=== PATIENT | female | born 1990 | race African-American/Black ===

== ENCOUNTER 2020-09-15 13:55 | Emergency (ER) | payer MEDICAID, SELFPAY ==
[2020-09-15 14:14] VITALS: BP 118/57; PULSE 95; RESP 17; TEMP 36; O2SAT 95; BMI 28.3
--- NOTE | 2020-09-15 15:23 | ED_ITS ---
HPI - General Adult General Chief complaint: General Medical Stated complaint: sore throat Time Seen by Provider: 09/15/20 14:37 Source: patient Mode of arrival: ambulatory Limitations: no limitations History of Present Illness HPI narrative: Patient presents to the ED for sore throat and pain in both ears. Patient states daughter also having symptoms. She denies any chest pain or shortness of breath. Patient also denies any coughing. Related Data Previous Rx's Medication Instructions Recorded azithromycin [Zithromax Z-Miguel] See Rx Instructions .ROUTE 09/15/20 .COMPLEX #6 tab Allergies Allergy/AdvReac Type Severity Reaction Status Date / Time latex [LATEX] Allergy Intermediate HIVES Unverified 06/08/20 19:38 Penicillins [PENICILLINS] Allergy Mild UNKNOWN Unverified 06/08/20 19:38 Review of Systems Review of Systems: Yes all other systems are reviewed and are negative Constitutional: Constitutional: Reports as per HPI and Reports no additional constitutional complaints Eyes: Eyes: Reports as per HPI and Reports no additional eye complaints ENT: Reports system reviewed and no additional complaints, except as documented, Reports as per HPI and Reports sore throat Cardiovascular: Cardiovascular: Reports as per HPI and Reports no additional cardiovascular complaints Respiratory: Respiratory: Reports as per HPI and Reports no additional respiratory complaints Gastrointestinal: Gastrointestinal: Reports as per HPI and Reports no additional gastrointestinal complaints Genitourinary: Genitourinary: Reports no additional female genitourinary complaints and Reports as per HPI Musculoskeletal: Musculoskeletal: Reports no additional musculoskeletal complaints and Reports as per HPI Neurologic: Reports system reviewed and no additional complaints, except as documented and Reports as per HPI Psychiatric: Psychiatric: Reports no additional psychiatric complaints and Reports as per HPI [facility] Social History Social History Smoking Status: Current every day smoker Use of substances other than those prescribed or required for medical reasons: No Advance Directives: No Advance Directives Information Provided: Yes Physical Exam Vital Signs: Vital Signs: Last Vital Signs Temp 96.8 F 09/15/20 14:14 Pulse 95 09/15/20 14:14 Resp 17 09/15/20 14:14 BP 118/57 L 09/15/20 14:14 Pulse Ox 95 09/15/20 14:14 Body Mass Index 28.3 Const: General: cooperative, healthy appearing, comfortable, no acute distress, well developed, alert, awake and Physically active Kenneth entation/consciousness: patient oriented x3 HENMT: Other: Negative for signs for peritonsillar abscess. Head: Yes normal to inspection, Yes No palpable skull fracture present, Yes normocephalic, Yes atraumatic, Yes abrasion, Yes Acrocyanosis present, No Valdez's sign, No contusion, No cranial bruits, No hematoma, No laceration, No occipital foramen tenderness, No palpable skull fracture, No raccoon eyes, No scalp tenderness and No Temporal artery tenderness present Ears: hearing grossly normal bilaterally, external ears normal and TM's normal bilaterally General nose exam: Normal external nose present and Normal nares present Face and sinus: Yes normal facial exam and Yes sinuses nontender Teeth and gingiva: dentition normal and gingiva normal Throat: Yes posterior oropharynx normal, Yes tonsils normal and Yes uvula midline Eyes: General: appearance normal, both eyes and all related structures Neck: Neck: Yes normal visual inspection, Yes full ROM, Yes no lymphadenopathy, Yes no meningeal signs, Yes trachea midline, Yes supple and No tender Chest: Chest palpation & inspection: normal inspection of the chest and normal palpation of entire chest wall Resp: Effort & Inspection: normal respiratory effort and able to speak in complete sentences Auscultation: clear to auscultation bilaterally Cardio: Jugular venous distension: no JVD Heart sounds: S1 normal heart sound present and S2 normal heart sound present GI: Inspection: Yes normal to inspection and No abdominal wall ecchymosis Palpation (GI): Soft to palpation, not firm, nontender, no guarding and not rigid : General: No CVA tenderness and Yes no CVA tenderness Back/Spine/Pelvis: Back: no CVA tenderness, No CVA tenderness and No back tenderness Skin: General skin exam: no rashes or lesions noted Neuro: General: patient oriented x3, gait normal, no meningeal signs and CN's II-XI intact bilaterally Cranial nerves: Yes CN's II-XII intact bilaterally Extrem: General: Yes normal to inspection and Yes full ROM Psych: Appearance: grossly normal, well kempt and not disheveled Course Course Course Narrative: Patient will have COVID swab and rapid strep done. Patient is not toxic appearing. Reevaluation(s) Reevaluation #1: Patient positive for rapid strep. Patient was discharged with azithromycin due to allergy to pencillin. Time: 15:55 Medical Decision Making [facility] Narrative Medical decision making narrative: Strep tonsillitis Lab Data Labs: Lab Results 09/15/20 Range/Units 14:52 Coronavirus (PCR) NEGATIVE (Negative) Influenza Type A (PCR) NEGATIVE (Negative) Influenza Type B (PCR) NEGATIVE (Negative) RSV RNA Qual (PCR) NEGATIVE (Negative) Discharge Plan Discharge Clinical Impression: Strep tonsillitis Patient Disposition: Home, Self-Care Instructions: Tonsillitis (ED) Additional Instructions: Return to the ED immediately for worsening throat pain, drooling, change in voice, chest pain, shortness of breath, neck swelling, or any other concerning symptoms. Prescriptions: New azithromycin [Zithromax Z-Miguel] 250 mg tablet See Rx Instructions .ROUTE .COMPLEX Qty: 6 RF: 0 Referrals: Elizabeth Cleveland NP [Primary Care Provider] - 2 days (Strep tonsillitis. Negative COVID. negative influenza. Negative RSV) Interventions: ED Discharge Assessment Last Done: 09/15/20 16:29 Discharge Date/Time: 09/15/20 16:30 Print Language: Mauritanian
[2020-09-15 15:41] LABS: Influenza A PCR NEGATIVE (Negative); Influenza B PCR NEGATIVE (Negative); Resp Syncy Virus RNA Qual PCR NEGATIVE (Negative); SARS COV2 PCR INHOUSE NEGATIVE (Negative)
== END 2020-09-15 16:30 | disposition home or self-care (01) ==
PROVIDERS: Physician Assistant; Emergency Provider Emergency Medicine Emergency Medical Services; PCP Nurse Practitioner Family
DX: J03.00 Acute streptococcal tonsillitis, unspecified (principal); H92.03 Otalgia, bilateral; Z20.828 Contact with and (suspected) exposure to other viral communicable diseases; Z79.899 Other long term (current) drug therapy; F17.200 Nicotine dependence, unspecified, uncomplicated; Z71.6 Tobacco abuse counseling
CPT/HCPCS: 0241U; 87880; 99283

== ENCOUNTER 2021-01-04 12:16 | Emergency (ER) | payer MEDICAID, SELFPAY ==
[2021-01-04 12:26] VITALS: BP 133/77; PULSE 80; RESP 18; TEMP 36.8; O2SAT 97; BMI 27.4
[2021-01-04 13:04] LABS: Appearance Urine HAZY; Color Urine YELLOW; Glucose Urine UA NEG (NEG); Leukocyte Esterase Urine 1+ (NEG); Nitrite Urine NEG (NEG); UACC Culture Trigger YES; Urine Blood 2+ (NEG); Urine Ketones NEG (NEG); Urine Protein 1+ MG/DL (NEG-TRACE)
[2021-01-04 13:18] LABS: Bacteria Urine 1+ /LPF; Squamous Epithelial Cell Urine 1+ /LPF; WBC Urine 30-49 /HPF (0-4)
[2021-01-04 13:36] VITALS: BP 133/77; PULSE 80; RESP 18; TEMP 36.8; O2SAT 97
[2021-01-04 13:40] LABS: UPreg QC Valid YES; Urine Pregnancy NEGATIVE (NEGATIVE)
[2021-01-04 14:00] VITALS: BP 115/70; PULSE 58; RESP 16
[2021-01-04] MEDS: Ketorolac Tromethamine 30 MG/ML VIAL IVPUSH (14:13)
[2021-01-04] MEDS: 0.9 % Sodium Chloride 1,000 ML 999 ML IV (14:14)
[2021-01-04 14:23] LABS: MANUAL DIFF FLAG NO
[2021-01-04 14:27] LABS: Basophils Absolute Auto 0.1 X10*3/uL (0.0-0.2); Basophils Percent Auto 0.4 % (0-2); Eosinophils Absolute Auto 0.4 X10*3/uL (0.0-0.4); Eosinophils Percent Auto 2.8 % (0-4); Hematocrit 38.6 % (37-47); Hemoglobin 12.4 g/dl (12.0-16.0); Imm Gran Abs Auto 0.04 X10*3/uL (0.00-0.03); Imm Gran Pct Auto 0.3 % (0.0-0.4); Lymphocytes Absolute Auto 2.3 X10*3/uL (1.2-4.9); Lymphocytes Percent Auto 17.5 % (20-40); Mean Corpuscular HGB Conc 32.1 g/dl (31.0-35.0); Mean Corpuscular Hemoglobin 27.7 pg (27.0-33.0); Mean Corpuscular Volume 86.2 fL (80-98); Mean Platelet Volume 10.1 fL (9.4-12.3); Monocytes Absolute Auto 0.9 X10*3/uL (0.1-1.2); Monocytes Percent Auto 6.9 % (2-11); Neutrophils Absolute Auto 9.4 X10*3/uL (2.0-8.3); Neutrophils Percent Auto 72.1 % (45-73); Platelet Count 349 X10*3/uL (160-400); Red Blood Count 4.48 X10*6/uL (4.20-5.50); Red Cell Distribution Width 15.3 % (11.0-16.0); White Blood Count 13.1 X10*3/uL (4.8-10.8)
[2021-01-04 14:37] LABS: UPreg QC Valid YES; Urine Pregnancy NEGATIVE (NEGATIVE)
[2021-01-04 14:57] LABS: Alanine Aminotransferase 10 U/L (0-31); Albumin Level 4.1 g/dL (3.5-5.0); Alkaline Phosphatase 75 U/L (39-117); Anion Gap 12 (12-20); Aspartate Amino Transferase 13 U/L (5-31); Bilirubin Total 0.8 mg/dL (0.0-1.0); Blood Urea Nitrogen 15 mg/dL (9-16); Calcium 9.5 mg/dL (8.4-10.2); Carbon Dioxide 24 mmol/L (22-29); Chloride 106 mmol/L (96-108); Creatinine Clr Calc Pharmacy 94.9; Estimated Glomerular Filt Rate > 60; Glucose Random 89 mg/dL (60-115); Lipase 8 U/L (8-78); Potassium 4.5 mmol/L (3.3-5.1); Sodium 137 mmol/L (135-145)
[2021-01-04 15:59] VITALS: BP 116/62; PULSE 66; RESP 18; TEMP 36.7; O2SAT 99
--- NOTE | 2021-01-04 16:04 | ED_ITS ---
HPI - General Adult General Chief complaint: Abdominal Pain Stated complaint: flank pain Time Seen by Provider: 01/04/21 13:11 Source: patient Mode of arrival: ambulatory Limitations: no limitations History of Present Illness HPI narrative: 30-year-old female who presents emergency department for evaluation of frequency, dysuria and right-sided flank pain. She states that her symptoms started Friday, 4 days prior to evaluation. She states that she developed frequency and dysuria. She also felt hot at home but did not take her temperature. She took [id number] medications without any relief for symptoms. She states that 2 days prior to evaluation she developed right flank pain which is constant, throbbing and is 10/10. She has had associated headache body aches and weakness. She states that she has had 2 urinary tract infections in the past and her symptoms feel similar to her urinary tract infections. Patient states that she is sexually active and has 1 sexual partner. She last had intercourse 6 days prior to evaluation. She is currently on her menstrual period. She states that she has had a bilateral tubal ligation 8 months prior and does not believe that she is . Related Data Previous Rx's Medication Instructions Recorded azithromycin [Zithromax Z-Miguel] See Rx Instructions .ROUTE 09/15/20 .COMPLEX #6 tab cefuroxime axetil 500 mg PO Q12H 10 Days #20 tab 01/04/21 phenazopyridine [Pyridium] 200 mg PO TID #10 tab 01/04/21 Allergies Allergy/AdvReac Type Severity Reaction Status Date / Time latex [LATEX] Allergy Intermediate HIVES Unverified 01/04/21 12:25 Penicillins [PENICILLINS] Allergy Mild UNKNOWN Unverified 01/04/21 12:25 Review of Systems Review of Systems: Yes all other systems are reviewed and are negative [facility] Past Medical History [facility] Narrative: Patient has a history of urinary tract infections in the past, she had pelvic DVT when she was . She has had 2 urinary tract infections in the past. She occasionally drinks alcohol, she occasionally s mokes marijuana. She denies tobacco use. Social History Social History Smoking Status: Current every day smoker Advance Directives: No Advance Directives Information Provided: Yes Physical Exam Vital Signs: Vital Signs: Last Vital Signs Temp 98.1 F 01/04/21 15:59 Pulse 66 01/04/21 15:59 Resp 18 01/04/21 15:59 BP 116/62 01/04/21 15:59 Pulse Ox 99 01/04/21 15:59 Body Mass Index 27.4 Const: General: cooperative and healthy appearing Orienta tion/consciousness: oriented to person and oriented to place Limitations: no limitations HENMT: Head: Yes normal to inspection, Yes normocephalic and Yes atraumatic Ears: external ears normal General nose exam: Normal external nose present Face and sinus: Yes normal facial exam Mouth: Normal oral and palatal mucosa present Throat: Yes posterior oropharynx normal Eyes: Periorbital: periorbital findings normal Eyelids: Yes eyelids normal Conjunctivae: conjunctivae normal Sclerae: sclerae normal Corneas: corneas normal Pupils: Equal, round and reactive pupils present Direct Ophthalmoscopy: normal light reflex Neck: Neck: Yes full ROM, Yes no lymphadenopathy, Yes no meningeal signs, Yes trachea midline and Yes supple Chest: Chest palpation & inspection: normal inspection of the chest and normal palpation of entire chest wall Resp: Effort & Inspection: normal respiratory effort and able to speak in complete sentences Auscultation: clear to auscultation bilaterally Cardio: Rate: regular rate Rhythm: regular rhythm Heart sounds: S1 normal heart sound present, S2 normal heart sound present and no murmurs GI: Inspection: Yes normal to inspection Palpation (GI): Soft to palpation, Tenderness to palpation present (GI) suprapubicly (Moderate), no guarding, not rigid and No hepatosplenomegaly present : General: Yes CVA tenderness on the right (Moderate) Back/Spine/Pelvis: Back: CVA tenderness Cervical Spine: normal cervical lordosis Thoracic/Lumbar Spine: thoracic and lumbar spine normal to inspection Skin: Lesions: no lesions Rashes: no rashes Wounds: no wounds Neuro: General: oriented to person, oriented to place and no meningeal signs Cranial nerves: Yes CN's II-XII intact bilaterally and Yes Equal, round and reactive pupils present Cognition (Neuro): normal cognition Motor exam (neuro): 5/5 motor strength present throughout Extrem: General: Yes normal to inspection and Yes full ROM Psych: Appearance: well kempt Mental Status: mental status grossly normal Speech and movement: Normal speech and movement present Affect: normal affect Attitude: cooperative Thought process: Normal thought process present Thought content: Normal thought content present Course Course Course Narrative: 30-year-old female who presents emergency department for evaluation of right flank pain, frequency, urgency dysuria. Physical examination did reveal right-sided CVA tenderness and suprapubic tenderness. Laboratory evaluation revealed a [place] [address]. Patient's urinalysis and microscopic evaluation is consistent with a urinary tract infection. Patient's presentation is consistent with right-sided pyelonephritis. Patient was treated with Toradol 30 mg IV, normal saline IV x1 L and ceftriaxone 1 g IV. The patient will be discharged home with a p rescription for Keflex 500 mg 4 times a day for 7 days. She was given verbal and printed instructions advised to follow-up with her PCP and return if her symptoms get worse. Medical Decision Making Lab Data Result diagrams: 01/04/21 14:12 01/04/21 14:12 Labs: Lab Results 01/04/21 01/04/21 01/04/21 Range/Units 12:43 12:43 13:57 WBC (4.8-10.8) X10*3/uL RBC (4.20-5.50) X10*6/uL Hgb (12.0-16.0) g/dl Hct (37-47) % MCV (80-98) fL MCH (27.0-33.0) pg MCHC (31.0-35.0) g/dl RDW (11.0-16.0) % Plt Count (160-400) X10*3/uL MPV (9.4-12.3) fL Immature Gran % (Auto) (0.0-0.4) % Neut % (Auto) (45-73) % Lymph % (Auto) (20-40) % [place] % (Auto) (2-11) % Eos % (Auto) (0-4) % Baso % (Auto) (0-2) % Lymph # (Auto) (1.2-4.9) X10*3/uL [place] # (Auto) (0.1-1.2) X10*3/uL Eos # (Auto) (0.0-0.4) X10*3/uL Baso # (Auto) (0.0-0.2) X10*3/uL Abs Immat Gran (auto) (0.00-0.03) X10*3/uL Absolute Neuts (auto) (2.0-8.3) X10*3/uL Absolute Nucleated RBC (0.0-0.012) X10*3/uL Nucleated RBC % (auto) (0.0-0.2) /100WBC Sodium (135-145) mmol/L Potassium (3.3-5.1) mmol/L Chloride (96-108) mmol/L Carbon Dioxide (22-29) mmol/L Anion Gap (12-20) BUN (9-16) mg/dL Creatinine (0.5-1.4) mg/dL Estim Creat Clear Calc Estimated GFR Random Glucose (60-115) mg/dL Calcium (8.4-10.2) mg/dL Total Bilirubin (0.0-1.0) mg/dL AST (5-31) U/L ALT (0-31) U/L Alkaline Phosphatase (39-117) U/L Total Protein (6.5-8.0) g/dL Albumin (3.5-5.0) g/dL Lipase (8-78) U/L Urine Color YELLOW Urine Appearance HAZY Urine pH 6.0 (5.0-8.0) Ur Specific [place] 1.020 (1.005-1.025) Urine Protein 1+ H (NEG-TRACE) MG/DL Urine Glucose (UA) NEG (NEG) MG/DL Urine Ketones NEG (NEG) MG/DL Urine Blood 2+ H (NEG) Urine Nitrite NEG (NEG) Ur Leukocyte Esterase 1+ H (NEG) Urine RBC 10-14 H (0) /HPF Urine WBC 30-49 H (0-4) /HPF Ur Squamous Epith Cells 1+ /LPF Urine Bacteria 1+ /LPF Urine Test NEGATIVE NEGATIVE (NEGATIVE) 01/04/21 01/04/21 Range/Units 14:12 14:12 WBC 13.1 H (4.8-10.8) X10*3/uL RBC 4.48 (4.20-5.50) X10*6/uL Hgb 12.4 (12.0-16.0) g/dl Hct 38.6 (37-47) % MCV 86.2 (80-98) fL MCH 27.7 (27.0-33.0) pg MCHC 32.1 (31.0-35.0) g/dl RDW 15.3 (11.0-16.0) % Plt Count 349 (160-400) X10*3/uL MPV 10.1 (9.4-12.3) fL Immature Gran % (Auto) 0.3 (0.0-0.4) % Neut % (Auto) 72.1 (45-73) % Lymph % (Auto) 17.5 L (20-40) % [place] % (Auto) 6.9 (2-11) % Eos % (Auto) 2.8 (0-4) % Baso % (Auto) 0.4 (0-2) % Lymph # (Auto) 2.3 (1.2-4.9) X10*3/uL [place] # (Auto) 0.9 (0.1-1.2) X10*3/uL Eos # (Auto) 0.4 (0.0-0.4) X10*3/uL Baso # (Auto) 0.1 (0.0-0.2) X10*3/uL Abs Immat Gran (auto) 0.04 H (0.00-0.03) X10*3/uL Absolute Neuts (auto) 9.4 H (2.0-8.3) X10*3/uL Absolute Nucleated RBC 0.000 (0.0-0.012) X10*3/uL Nucleated RBC % (auto) 0.0 (0.0-0.2) /100WBC Sodium 137 (135-145) mmol/L Potassium 4.5 (3.3-5.1) mmol/L Chloride 106 (96-108) mmol/L Carbon Dioxide 24 (22-29) mmol/L Anion Gap 12 (12-20) BUN 15 (9-16) mg/dL Creatinine 0.79 (0.5-1.4) mg/dL Estim Creat Clear Calc 94.9 Estimated GFR > 60 Random Glucose 89 (60-115) mg/dL Calcium 9.5 (8.4-10.2) mg/dL Total Bilirubin 0.8 (0.0-1.0) mg/dL AST 13 (5-31) U/L ALT 10 (0-31) U/L Alkaline Phosphatase 75 (39-117) U/L Total Protein 7.0 (6.5-8.0) g/dL Albumin 4.1 (3.5-5.0) g/dL Lipase 8 (8-78) U/L Urine Color Urine Appearance Urine pH (5.0-8.0) Ur Specific [place] (1.005-1.025) Urine Protein (NEG-TRACE) MG/DL Urine Glucose (UA) (NEG) MG/DL Urine Ketones (NEG) MG/DL Urine Blood (NEG) Urine Nitrite (NEG) Ur Leukocyte Esterase (NEG) Urine RBC (0) /HPF Urine WBC (0-4) /HPF Ur Squamous Epith Cells /LPF Urine Bacteria /LPF Urine Test (NEGATIVE) Discharge Plan Discharge Clinical Impression: Pyelonephritis of right kidney Patient Disposition: Home, Self-Care Instructions: Urinary Tract Infection in Women (ED) Additional Instructions: Your physical examination is consistent with a right kidney infection (pyelonephritis). Your laboratory evaluation did reveal a slight elevation in white blood cell count and your urinalysis is consistent with a urinary tract infection. You were treated here in the emergency department with an anti-inflammatory pain medicine call Toradol IV. You also received normal saline x1 L IV. You were given an antibiotic called ceftriaxone 1 g IV. Take Keflex (cephalexin) 500 mg pills, 1 pill 4 times a day for 7 days to treat your urine infection. Take Pyridium 200 mg pills, 1 pill 3 times a day as needed for painful urination. Take ibuprofen 200 mg pills, 3 pills every 6 hours as needed for pain. Take Tylenol (acetaminophen) 500 mg pills, 2 pills every 4 to 6 hours as needed for pain. Follow-up with your doctor in 2 days. Please return to the emergency department if your symptoms get worse or if you develop any symptoms that are concerning to you. If your concerned about sexually transmitted diseases like gonorrhea and chlamydia your doctor can order an outpatient urine sample to test for these infections. Prescriptions: New cefuroxime axetil 500 mg tablet 500 mg PO Q12H 10 Days Qty: 20 RF: 0 phenazopyridine [Pyridium] 200 mg tablet 200 mg PO TID Qty: 10 RF: 0 No Action azithromycin [Zithromax Z-Miguel] 250 mg tablet See Rx Instructions .ROUTE .COMPLEX Qty: 6 RF: 0
== END 2021-01-04 16:32 | disposition home or self-care (01) ==
PROVIDERS: Emergency Provider Emergency Medicine Emergency Medical Services; PCP Nurse Practitioner Family
DX: N10 Acute pyelonephritis (principal); R35.0 Frequency of micturition; R10.9 Unspecified abdominal pain; R51.9 Headache, unspecified; M79.10 Myalgia, unspecified site; F17.200 Nicotine dependence, unspecified, uncomplicated; Z71.6 Tobacco abuse counseling; Z79.899 Other long term (current) drug therapy
CPT/HCPCS: 36415; 80053; 81001; 81003; 81025; 83690; 85025; 87086; 87088; 87186; 96365; 96375; 99285; J1885

== ENCOUNTER 2021-03-24 14:28 | Emergency (ER) | payer MEDICAID, SELFPAY ==
[2021-03-24 14:43] VITALS: BP 119/65; PULSE 79; RESP 18; TEMP 36.7; O2SAT 99; BMI 25.3
[2021-03-24 15:20] LABS: Glucose Urine UA NEG (NEG); Leukocyte Esterase Urine 1+ (NEG); Nitrite Urine NEG (NEG); Specific Gravity - Urine >= 1.030 (1.005-1.025); UACC Culture Trigger YES; Urine Blood NEG (NEG); Urine Ketones NEG (NEG); Urine Protein TRACE MG/DL (NEG-TRACE)
[2021-03-24 15:23] LABS: Appearance Urine HAZY; Color Urine YELLOW
[2021-03-24 15:24] LABS: UPreg QC Valid YES; Urine Pregnancy NEGATIVE (NEGATIVE)
[2021-03-24 15:29] LABS: Bacteria Urine TRACE /LPF; Mucus Urine TRACE /LPF; RBC Urine 0 /HPF (0); Squamous Epithelial Cell Urine 1+ /LPF; WBC Urine 30-49 /HPF (0-4)
[2021-03-24 15:50] LABS: COVID-19 Test Negative (Negative)
[2021-03-24 16:15] LABS: IDNOW Serial# 9DD0AD1C; Strep A Nucleic Acid Negative (Negative)
--- NOTE | 2021-03-24 16:39 | ED.GENADULT ---
HPI - General Adult General Chief complaint: General Medical Stated complaint: sore throat Time Seen by Provider: 03/24/21 15:07 History of Present Illness HPI narrative: patient with 2 complaints First complaint is a sore throat for several days Second complaint is 2 days of frequent urination similar to prior urinary tract infection with mild suprapubic pain when she urinates Review of symptoms is positive for sore throat and dysuria Negatives are no fever no chills no dizziness no weakness no headache no difficulty breathing or swallowing no neck pain no chest pain no shortness of breath no abdominal pain no nausea vomiting or diarrhea no skin rash Related Data Previous Rx's Medication Instructions Recorded azithromycin [Zithromax Z-Miguel] See Rx Instructions .ROUTE 09/15/20 .COMPLEX #6 tab cefuroxime axetil 500 mg PO Q12H 10 Days #20 tab 01/04/21 phenazopyridine [Pyridium] 200 mg PO TID #10 tab 01/04/21 acetaminophen 1,000 mg PO QID PRN #30 tab 03/24/21 ibuprofen 600 mg PO Q6H PRN #20 tab 03/24/21 nitrofurantoin monohyd/m-cryst 100 mg PO Q12H 5 Days #10 cap 03/24/21 [Macrobid] Allergies Allergy/AdvReac Type Severity Reaction Status Date / Time latex [LATEX] Allergy Intermediate HIVES Verified 03/24/21 14:43 Penicillins [PENICILLINS] Allergy Mild UNKNOWN Verified 03/24/21 14:43 [facility] Past Medical History Source: nursing notes reviewed Surgical History (Updated 03/24/21 @ 14:46 by Akua Arguello RN) S/P tubal ligation Social History Social History Alcohol intake: never Advance Directives: No Advance Directives Information Provided: Yes Patient : No Physical Exam Vital Signs: Vital Signs: Last Vital Signs Temp 98.0 F 03/24/21 14:43 Pulse 79 03/24/21 14:43 Resp 18 03/24/21 14:43 BP 119/65 03/24/21 14:43 Pulse Ox 99 03/24/21 14:43 Body Mass Index 25.3 General appearance no acute distress Eyes are clear no discharge or redness The ears are clear with normal tympanic membranes and normal canals The pharynx had some pharyngeal erythema, no swelling no exudate no drooling no voice change, no exudate Neck was supple without lymphadenopathy Chest was clear to auscultation bilateral Heart no murmur Abdomen soft nontender The back no CVA tenderness Extremities full range of motion x4, no rash Course Course Course Narrative: COVID and strep tests were negative, urinalysis showed a probable urinary tract infection so patient is treated with antibiotic and well-appearing patient is discharged Medical Decision Making Lab Data Labs: Lab Results 03/24/21 03/24/21 03/24/21 Range/Units 15:06 15:11 15:12 Urine Color YELLOW Urine Appearance HAZY Urine pH 6.0 (5.0-8.0) Ur Specific [place] >= 1.030 H (1.005-1.025) Urine Protein TRACE (NEG-TRACE) MG/DL Urine Glucose (UA) NEG (NEG) MG/DL Urine Ketones NEG (NEG) MG/DL Urine Blood NEG (NEG) Urine Nitrite NEG (NEG) Ur Leukocyte Esterase 1+ H (NEG) Urine RBC 0 (0) /HPF Urine WBC 30-49 H (0-4) /HPF Ur Squamous Epith Cells 1+ /LPF Urine Bacteria TRACE /LPF Urine Mucus TRACE /LPF Urine Test NEGATIVE (NEGATIVE) COVID-19 (PAT) Negative (Negative) COVID-19 Clin Com See Note S. pyogenes GrpA BRITNEY (Negative) 03/24/21 Range/Units 15:13 Urine Color Urine Appearance Urine pH (5.0-8.0) Ur Specific [place] (1.005-1.025) Urine Protein (NEG-TRACE) MG/DL Urine Glucose (UA) (NEG) MG/DL Urine Ketones (NEG) MG/DL Urine Blood (NEG) Urine Nitrite (NEG) Ur Leukocyte Esterase (NEG) Urine RBC (0) /HPF Urine WBC (0-4) /HPF Ur Squamous Epith Cells /LPF Urine Bacteria /LPF Urine Mucus /LPF Urine Test (NEGATIVE) COVID-19 (PAT) (Negative) COVID-19 Clin Com S. pyogenes GrpA BRITNEY Negative (Negative) Discharge Plan Discharge Clinical Impression: UTI (urinary tract infection), Pharyngitis Patient Disposition: Home, Self-Care Additional Instructions: urinalysis showed your frequent urination is likely from urine infection so we are treating with Macrobid antibiotic COVID testing was negative as well as strep throat testing was negative Your sore throat is most likely viral Drink plenty of fluids, we gave 1 dose of prednisone which often reduces inflammation in the throat and improve symptoms, you can use Tylenol or Motrin as well for any discomfort Return to the ER any time any worse condition or any concerns If not better next week follow with primary doctor for re-evaluation Prescriptions: New acetaminophen 500 mg tablet 1,000 mg PO QID PRN (Reason: pain) Qty: 30 RF: 0 ibuprofen 600 mg tablet 600 mg PO Q6H PRN (Reason: pain) Qty: 20 RF: 0 nitrofurantoin monohyd/m-cryst [Macrobid] 100 mg capsule 100 mg PO Q12H 5 Days Qty: 10 RF: 0 No Action azithromycin [Zithromax Z-Miguel] 250 mg tablet See Rx Instructions .ROUTE .COMPLEX Qty: 6 RF: 0 cefuroxime axetil 500 mg tablet 500 mg PO Q12H 10 Days Qty: 20 RF: 0 phenazopyridine [Pyridium] 200 mg tablet 200 mg PO TID Qty: 10 RF: 0 Interventions: ED Discharge Assessment Last Done: 03/24/21 17:27 Discharge Date/Time: 03/24/21 17:31
[2021-03-24] MEDS: predniSONE 20 MG TABLET 60 MG PO (17:10)
[2021-03-24] MEDS: Ibuprofen 600 MG TABLET PO (17:10)
[2021-03-24] MEDS: Nitrofurantoin Monohyd/M-Cryst 100 MG CAPSULE PO (17:10)
== END 2021-03-24 17:31 | disposition home or self-care (01) ==
PROVIDERS: Physician Assistant Medical; Emergency Provider Emergency Medicine Emergency Medical Services; PCP Nurse Practitioner Family
DX: J02.9 Acute pharyngitis, unspecified (principal); N39.0 Urinary tract infection, site not specified; Z20.822 Contact with and (suspected) exposure to COVID-19
CPT/HCPCS: 36415; 81001; 81003; 81025; 87086; 87635; 87651; 99283; 99284

== ENCOUNTER 2021-07-19 14:27 | Emergency (ER) | payer MEDICAID, SELFPAY ==
--- NOTE | ~2021-07-19 | XR_ITS ---
EXAMINATION: XR CHEST CLINICAL INFORMATION: Midline chest pain. COMPARISON: Chest radiograph 12/19/2019 TECHNIQUE: Frontal view of the chest was obtained. FINDINGS: The lungs are clear. The vascularity is normal. There is no pneumothorax, airspace consolidation, groundglass opacity, or effusion. The heart is normal in size. The hilar and mediastinal contours are normal. There is borderline levocurvature lower thoracic spine. Bilateral nipple piercings are present. XR/XR chest 1V IMPRESSION: Unremarkable examination.
[2021-07-19 14:31] VITALS: BP 117/71; PULSE 74; RESP 18; TEMP 36.9; O2SAT 100; BMI 24.7
--- NOTE | 2021-07-19 14:35 | ECG_ITS ---
Test Reason : CHEST PAIN Blood Pressure : / mmHG Vent. Rate : 065 BPM Atrial Rate : 065 BPM P-R Int : 164 ms QRS Dur : 076 ms QT Int : 380 ms P-R-T Axes : 048 068 058 degrees QTc Int : 395 ms Normal sinus rhythm with sinus arrhythmia Normal ECG NO PREVIOUS EKG Referred By: Generic ED Physician Electronically Signed By:HUNTER MENESES MD
--- NOTE | 2021-07-19 16:14 | ED.CHESTPAIN ---
HPI - Chest Pain General Chief Complaint: Chest Pain Stated Complaint: chest pain Time Seen by Provider: 07/19/21 15:52 Source: patient Mode of arrival: ambulatory Limitations: no limitations History of Present Illness HPI narrative: 31-year-old female is here today for complaining of stabbing like chest pain. Patient reports that the chest pain was radiating to her back. Patient reports that the pain started about a week ago and is intermittent. Patient reports that she has been going under a lot of stress at home. She is caring for her 3 children, and the youngest one is 3 years old. Two of the children have autism and one of them has ADD. Patient reports that while she was 4 years ago she had blood clot in 1 of her ovaries and she had to inject herself with Lovenox. Patient reports that she also have been feeling short of breath and feeling tired. Denies syncope, presyncope, edema. Patient denies any family history of PE. MD complaint: chest pain and other Onset (ago): day(s) Timing of current episode: episodic and now resolved Related Data Previous Rx's Medication Instructions Recorded azithromycin 250 mg tablet See Rx Instructions .ROUTE 09/15/20 (Zithromax Z-Miguel) .COMPLEX #6 tab cefuroxime axetil 500 mg tablet 500 mg PO Q12H 10 Days #20 tab 01/04/21 phenazopyridine 200 mg tablet 200 mg PO TID #10 tab 01/04/21 (Pyridium) acetaminophen 500 mg tablet 1,000 mg PO QID PRN #30 tab 03/24/21 ibuprofen 600 mg tablet 600 mg PO Q6H PRN #20 tab 03/24/21 nitrofurantoin 100 mg PO Q12H 5 Days #10 cap 03/24/21 monohydrate/macrocrystals 100 mg capsule (Macrobid) cyclobenzaprine 5 mg tablet 5 mg PO BEDTIME PRN #7 tab 07/19/21 ibuprofen 600 mg tablet 600 mg PO Q8H PRN #20 tab 07/19/21 Allergies Allergy/AdvReac Type Severity Reaction Status Date / Time latex [LATEX] Allergy Intermediate HIVES Verified 07/19/21 14:31 Penicillins [PENICILLINS] Allergy Mild UNKNOWN Verified 07/19/21 14:31 Review of Systems Review of Systems: Constitutional : No Weight loss, No Fever, No Chills, No Night Sweats, No Fatigue, No Malaise ENT/Mouth : No Hearing loss, No Ear Pain, No Nasal Congestion, No Sinus Pain, No Hoarseness, No sore throat, No Rhinorrhea, No Swallowing Difficulty Eyes: No Eye Pain, No Swelling, No Redness, No Foreign Body, No Discharge, No Vision Changes Cardiovascular : Chest Pain, No SOB, Dyspnea on Exertion, No Orthopnea, No Edema, No Palpitations Respiratory : No Cough, No Sputum, No Wheezing, No Smoke Exposure, No Dyspnea Gastrointestinal : No Nausea, No Vomiting, No Diarrhea, No Constipation, No abdominal Pain, No Hematochezia, No Melena Genitourinary : no irregular bleeding, No Dysuria, No Urinary Frequency, No Hematuria, No Urinary Incontinence, No Urgency, No Flank Pain, No Urinary Flow Changes, No Hesitancy Musculoskeletal : No joint pain, No Myalgias, No Joint Swelling Skin : No Skin Lesions, No rash Neuro : No Weakness, No Numbness, No Paresthesias, No Loss of Consciousness, No Dizziness, No Headache Psych : No Anxiety/Panic, No Depression, No SI/HI/AH/VH, No Social Issues, Yes all other systems are reviewed and are negative [facility] Past Medical History Medical History (Updated 07/19/21 @ 17:21 by NICOLAS Wright-) Asthma Surgical History S/P tubal ligation Social History Social History Alcohol intake: never Advance Directives: No Advance Directives Information Provided: No Patient : No Physical Exam Vital Signs: Vital Signs: Last Vital Signs Temp 98.4 F 07/19/21 14:31 Pulse 74 07/19/21 14:31 Resp 18 07/19/21 14:31 BP 117/71 07/19/21 14:31 Pulse Ox 100 07/19/21 14:31 Body Mass Index 24.7 Const: General: cooperative, healthy appearing and comfortable Nutritional Appearance: average body habitus Orientation/consciousness: patient oriented x3 Limitations: no limitations HENMT: Head: Yes normal to inspection, Yes normocephalic and Yes atraumatic Ears: hearing grossly normal bilaterally General nose exam: Normal external nose present Face and sinus: Yes normal facial exam Mouth: Normal oral and palatal mucosa present Throat: Yes posterior oropharynx normal Eyes: General: appearance normal, both eyes and all related structures Eyelids: Yes eyelids normal Conjunctivae: conjunctivae normal Sclerae: sclerae normal Pupils: Equal, round and reactive pupils present Neck: Neck: Yes normal visual inspection, Yes full ROM, Yes no lymphadenopathy, Yes trachea midline and Yes supple Thyroid: Thyroid normal Lymphatic: no lymphadenopathy noted Chest: Chest palpation & inspection: normal inspection of the chest Resp: Effort & Inspection: normal respiratory effort and able to speak in complete sentences Auscultation: clear to auscultation bilaterally Cardio: Jugular venous distension: no JVD Rate: regular rate Rhythm: regular rhythm Heart sounds: S1 normal heart sound present, S2 normal heart sound present, no gallops, no murmurs and no rubs Peripheral pulses: Peripheral pulses 2+ throughout GI: Inspection: Yes normal to inspection and No distended Palpation (GI): Soft to palpation, nontender, no guarding, No hepatosplenomegaly present and No Rebound tenderness present Percussion: Yes normal to percussion Auscultation: normal bowel sounds Back/Spine/Pelvis: Cervical Spine: cervical ROM normal and No cervical muscular tenderness Thoracic/Lumbar Spine: thoracic and lumbar spine normal to inspection Skin: General skin exam: no rashes or lesions noted, elasticity normal and turgor normal Neuro: General: patient oriented x3 Cranial nerves: Yes Equal, round and reactive pupils present Extrem: General: Yes normal to inspection, Yes full ROM and Yes capillary refill normal Psych: Appearance: grossly normal Mental Status: mental status grossly normal Speech and movement: Normal speech and movement present Affect: normal affect Attitude: cooperative Thought process: Normal thought process present Insight: Good insight present (Psych) Course Course Course Narrative: 31-year-old female is here today for complaints of chest pain. Patient reports that she has stabbing chest pain radiating to her back and her left armpit area. Patient reports that she has been under lot of stress caring for her 3 small children. Youngest one is 3 years old. Two of the children have autism and one of them have ADD. Patient reports to feel out of breath even when she walk short distances. Reports to be feeling tired. The symptoms have been going on for almost a week. Patient also reports that when she was with her child 3 years ago she had blood clots on her ovary and was receiving Lovenox injections. Patient denies any leg pain, denies any dizziness. Denies any syncope, presyncope. Will order D-dimer, troponin, BMP and CBC if D-dimer positive will do CTA. Patient is agreeable to this plan Reevaluation(s) Reevaluation #1: D-dimer negative, troponin negative, no leukocytosis no anemia, kidney functions normal and normal electrolytes. Will medicate her with cyclobenzaprine and ibuprofen. Patient reports that her pain is more in her left upper back behind her armpit area. I will give her low-dose cyclobenzaprine and ibuprofen. Patient will be sent home on ibuprofen, she can take cyclobenzaprine at bedtime. Patient was encouraged to follow-up with her PCP for further care. She was also encouraged to return if her symptoms will get worse or if she will experience any additional concerning symptoms MDM - Chest Pain Lab Data Attestation: I reviewed the patient's lab results. Result diagrams: 07/19/21 16:38 07/19/21 16:38 Labs: Lab Results 07/19/21 07/19/21 07/19/21 Range/Units 16:38 16:38 16:38 WBC 8.8 (4.8-10.8) X10*3/uL RBC 4.67 (4.20-5.50) X10*6/uL Hgb 12.9 (12.0-16.0) g/dl Hct 40.0 (37-47) % MCV 85.7 (80-98) fL MCH 27.6 (27.0-33.0) pg MCHC 32.3 (31.0-35.0) g/dl RDW 14.6 (11.0-16.0) % Plt Count 375 (160-400) X10*3/uL MPV 9.9 (9.4-12.3) fL Immature Gran % (Auto) 0.3 (0.0-0.4) % Neut % (Auto) 58.8 (45-73) % Lymph % (Auto) 31.3 (20-40) % Motley % (Auto) 6.5 (2-11) % Eos % (Auto) 2.3 (0-4) % Baso % (Auto) 0.8 (0-2) % Lymph # (Auto) 2.8 (1.2-4.9) X10*3/uL Motley # (Auto) 0.6 (0.1-1.2) X10*3/uL Eos # (Auto) 0.2 (0.0-0.4) X10*3/uL Baso # (Auto) 0.1 (0.0-0.2) X10*3/uL Abs Immat Gran (auto) 0.03 (0.00-0.03) X10*3/uL Absolute Neuts (auto) 5.2 (2.0-8.3) X10*3/uL Absolute Nucleated RBC 0.000 (0.0-0.012) X10*3/uL Nucleated RBC % (auto) 0.0 (0.0-0.2) /100WBC D-Dimer NG/ML Sodium 135 (135-145) mmol/L Potassium 4.1 (3.3-5.1) mmol/L Chloride 105 (96-108) mmol/L Carbon Dioxide 23 (22-29) mmol/L Anion Gap 11 L (12-20) BUN 10 (9-16) mg/dL Creatinine 0.84 (0.5-1.4) mg/dL Estim Creat Clear Calc 87.8 Estimated GFR > 60 Random Glucose 85 (60-115) mg/dL Calcium 9.4 (8.4-10.2) mg/dL Troponin I High Sens < 3.5 (<3.5-17.0) ng/L 07/19/21 Range/Units 16:38 WBC (4.8-10.8) X10*3/uL RBC (4.20-5.50) X10*6/uL Hgb (12.0-16.0) g/dl Hct (37-47) % MCV (80-98) fL MCH (27.0-33.0) pg MCHC (31.0-35.0) g/dl RDW (11.0-16.0) % Plt Count (160-400) X10*3/uL MPV (9.4-12.3) fL Immature Gran % (Auto) (0.0-0.4) % Neut % (Auto) (45-73) % Lymph % (Auto) (20-40) % Motley % (Auto) (2-11) % Eos % (Auto) (0-4) % Baso % (Auto) (0-2) % Lymph # (Auto) (1.2-4.9) X10*3/uL Motley # (Auto) (0.1-1.2) X10*3/uL Eos # (Auto) (0.0-0.4) X10*3/uL Baso # (Auto) (0.0-0.2) X10*3/uL Abs Immat Gran (auto) (0.00-0.03) X10*3/uL Absolute Neuts (auto) (2.0-8.3) X10*3/uL Absolute Nucleated RBC (0.0-0.012) X10*3/uL Nucleated RBC % (auto) (0.0-0.2) /100WBC D-Dimer < 200 NG/ML Sodium (135-145) mmol/L Potassium (3.3-5.1) mmol/L Chloride (96-108) mmol/L Carbon Dioxide (22-29) mmol/L Anion Gap (12-20) BUN (9-16) mg/dL Creatinine (0.5-1.4) mg/dL Estim Creat Clear Calc Estimated GFR Random Glucose (60-115) mg/dL Calcium (8.4-10.2) mg/dL Troponin I High Sens (<3.5-17.0) ng/L Imaging Data Chest x-ray: Attestation: I personally reviewed and interpreted this imaging study as follows: Radiologist's impression: FINDINGS: The lungs are clear. The vascularity is normal. There is no pneumothorax, airspace consolidation, groundglass opacity, or effusion. The heart is normal in size. The hilar and mediastinal contours are normal. There is borderline levocurvature lower thoracic spine. Bilateral nipple piercings are present. ECG Data ECG #1: Attestation: I personally reviewed and interpreted this ECG as follows: Interpretation: Atrial rate 65, ventricular rate 65. MT interval 0.16, QRS 0.07 normal sinus with sinus arrhythmia. No other EKG available to compare Discharge Plan Discharge Clinical Impression: Atypical chest pain, Costalchondritis Patient Disposition: Home, Self-Care Instructions: Costochondritis (ED), Muscle Spasm (ED) Additional Instructions: You were seen here today for complaints of sharp chest pain radiating to her back and under armpit. X-ray an EKG negative for any acute processes. All your lab work was also negative. Check your blood to see if there is a chance you might have a blood clot and it was negative. You are cardiac workup was also negative for any acute finding. You were given anti-inflammatory medication and muscle relaxer. You will be sent home with that. Please make sure that you do not drive or drink alcohol when taking the muscle relaxer. You may return to emergency department his symptoms will get worse or if you experience any additional concerning symptoms Prescriptions: New ibuprofen 600 mg tablet 600 mg PO Q8H PRN (Reason: pain) Qty: 20 RF: 0 cyclobenzaprine 5 mg tablet 5 mg PO BEDTIME PRN (Reason: muscle spasm) Qty: 7 RF: 0 No Action azithromycin [Zithromax Z-Miguel] 250 mg tablet See Rx Instructions .ROUTE .COMPLEX Qty: 6 RF: 0 cefuroxime axetil 500 mg tablet 500 mg PO Q12H 10 Days Qty: 20 RF: 0 phenazopyridine [Pyridium] 200 mg tablet 200 mg PO TID Qty: 10 RF: 0 acetaminophen 500 mg tablet 1,000 mg PO QID PRN (Reason: pain) Qty: 30 RF: 0 ibuprofen 600 mg tablet 600 mg PO Q6H PRN (Reason: pain) Qty: 20 RF: 0 nitrofurantoin monohyd/m-cryst [Macrobid] 100 mg capsule 100 mg PO Q12H 5 Days Qty: 10 RF: 0 Referrals: Elizabeth Cleveland NP [Primary Care Provider] - 2 days Stand Alone Forms: Work/School Release
[2021-07-19 16:42] LABS: MANUAL DIFF FLAG NO
[2021-07-19 16:52] LABS: Basophils Absolute Auto 0.1 X10*3/uL (0.0-0.2); Basophils Percent Auto 0.8 % (0-2); Eosinophils Absolute Auto 0.2 X10*3/uL (0.0-0.4); Eosinophils Percent Auto 2.3 % (0-4); Hemoglobin 12.9 g/dl (12.0-16.0); Imm Gran Abs Auto 0.03 X10*3/uL (0.00-0.03); Imm Gran Pct Auto 0.3 % (0.0-0.4); Lymphocytes Absolute Auto 2.8 X10*3/uL (1.2-4.9); Lymphocytes Percent Auto 31.3 % (20-40); Mean Corpuscular HGB Conc 32.3 g/dl (31.0-35.0); Mean Corpuscular Hemoglobin 27.6 pg (27.0-33.0); Mean Corpuscular Volume 85.7 fL (80-98); Mean Platelet Volume 9.9 fL (9.4-12.3); Monocytes Absolute Auto 0.6 X10*3/uL (0.1-1.2); Monocytes Percent Auto 6.5 % (2-11); Neutrophils Absolute Auto 5.2 X10*3/uL (2.0-8.3); Neutrophils Percent Auto 58.8 % (45-73); Platelet Count 375 X10*3/uL (160-400); Red Blood Count 4.67 X10*6/uL (4.20-5.50); Red Cell Distribution Width 14.6 % (11.0-16.0); White Blood Count 8.8 X10*3/uL (4.8-10.8)
[2021-07-19 16:59] LABS: Anion Gap 11 (12-20); Blood Urea Nitrogen 10 mg/dL (9-16); Calcium 9.4 mg/dL (8.4-10.2); Carbon Dioxide 23 mmol/L (22-29); Chloride 105 mmol/L (96-108); Creatinine Clr Calc Pharmacy 87.8; Estimated Glomerular Filt Rate > 60; Glucose Random 85 mg/dL (60-115); Potassium 4.1 mmol/L (3.3-5.1); Sodium 135 mmol/L (135-145)
[2021-07-19 17:02] LABS: D Dimer < 200 NG/ML
[2021-07-19 17:07] LABS: Troponin-I High Sensitivity < 3.5 ng/L (<3.5-17.0)
[2021-07-19] MEDS: Ibuprofen 600 MG TABLET PO (17:24)
[2021-07-19] MEDS: Cyclobenzaprine HCl 5 MG TABLET PO (17:25)
[2021-07-19 17:26] VITALS: BP 130/87; PULSE 71; RESP 18; TEMP 36.5; O2SAT 100
== END 2021-07-19 17:33 | disposition home or self-care (01) ==
PROVIDERS: Nurse Practitioner Family; Emergency Provider Emergency Medicine; PCP Nurse Practitioner Family
DX: R07.89 Other chest pain (principal); M94.0 Chondrocostal junction syndrome [Tietze]; R06.02 Shortness of breath
CPT/HCPCS: 36415; 71045; 80048; 84484; 85025; 85379; 93005; 99284

== ENCOUNTER 2021-10-16 19:26 | Emergency (ER) | payer MEDICAID, SELFPAY ==
[2021-10-16 19:28] VITALS: BP 115/72; PULSE 82; RESP 18; TEMP 37.2; O2SAT 98; BMI 26.5
--- NOTE | 2021-10-16 20:18 | ED_ITS ---
HPI - Wound/Laceration General Chief Complaint: Wound/Laceration Stated Complaint: lac on right hand Time Seen by Provider: 10/16/21 20:17 Source: patient Mode of arrival: ambulatory Limitations: no limitations History of Present Illness HPI narrative: This is a 31-year-old female with no known medical history presenting to the emergency department with complaints of a small laceration to the right web space near the some. Patient tells me she was taking out the trash can cut her thumb on something, she is not sure which she cut the someone. She reports little bit of pain at the site. There is no active bleeding. She tells me her mom made her come in to get evaluated. Onset (ago): hour(s) (2) Location: other (right first websvace ) Place: home Patient tetanus UTD: Yes Context: accidental Associated symptoms: none Related Data Previous Rx's Medication Instructions Recorded azithromycin 250 mg tablet See Rx Instructions .ROUTE 09/15/20 (Zithromax Z-Miguel) .COMPLEX #6 tab cefuroxime axetil 500 mg tablet 500 mg PO Q12H 10 Days #20 tab 01/04/21 phenazopyridine 200 mg tablet 200 mg PO TID #10 tab 01/04/21 (Pyridium) acetaminophen 500 mg tablet 1,000 mg PO QID PRN #30 tab 03/24/21 ibuprofen 600 mg tablet 600 mg PO Q6H PRN #20 tab 03/24/21 nitrofurantoin 100 mg PO Q12H 5 Days #10 cap 03/24/21 monohydrate/macrocrystals 100 mg capsule (Macrobid) cyclobenzaprine 5 mg tablet 5 mg PO BEDTIME PRN #7 tab 07/19/21 ibuprofen 600 mg tablet 600 mg PO Q8H PRN #20 tab 07/19/21 doxycycline hyclate 100 mg capsule 100 mg PO BID 10 Days #20 cap 10/16/21 Allergies Allergy/AdvReac Type Severity Reaction Status Date / Time latex [LATEX] Allergy Intermediate HIVES Verified 10/16/21 19:28 Penicillins [PENICILLINS] Allergy Mild UNKNOWN Verified 10/16/21 19:28 Review of Systems Review of Systems: Constitutional : No Fever, No Chills, Cardiovascular : No Chest Pain, No SOB Respiratory : No Dyspnea Gastrointestinal : No abdominal pain Musculoskeletal : No Joint Swelling Skin : No rash, positive skin laceration Neuro : No Weakness, No Numbness Psych : No SI/HI Yes all other systems are reviewed and are negative [facility] Past Medical History Attestation statement: The following information was validated with the patient. Source: old records reviewed and nursing notes reviewed Medical History Asthma Surgical History S/P tubal ligation Social History Social History Alcohol intake: never Advance Directives: No Advance Directives Information Provided: Yes Patient : No Physical Exam Vital Signs: Vital Signs: Last Vital Signs Temp 99 F 10/16/21 19:28 Pulse 82 10/16/21 19:28 Resp 18 10/16/21 19:28 BP 115/72 10/16/21 19:28 Pulse Ox 98 10/16/21 19:28 BMI result Body Mass Index 26.5 VSS Appearance: Alert.? Oriented X3.? No acute distress.? Head: Normocephalic, atraumatic, no step-offs or deformities Eyes: Pupils equal, round and reactive to light.? Neck: Normal inspection.? Neck supple.? CVS: Normal heart rate and rhythm.? Pulses normal.? Respiratory: No respiratory distress.? Breath sounds normal.? Abdomen: Soft and nontender.? Skin: Skin warm and dry.? Normal skin color.? Normal skin turgor.?+ small laceration to the right fist webspace (around 1cm) no bleeding Extremities:5/5 strength to bilateral upper and lower extremities Neuro: Oriented X 3.? No motor deficit.? No sensory deficit. Course Reevaluation(s) Reevaluation #1: Patient's wound requires closure with Dermabond, this PA as well as multiple nurses in the emergency department has Jp camiloed scotty nursing supervisor slashing department to obtain Dermabond however they is still not brought Dermabond up to the emergency department. Will continue to try. Patient upset as this is taking a while. I have explained to patient that likely the nursing supervisor slashing department is dealing with an important situation as there was a respiratory stat page to the floor. Time: 21:21 Reevaluation #2: Patient eloped MDM - Wound/Laceration MDM Narrative Medical decision making narrative: 2018 31 yo f presents with a lac to her right 1st webspace about 1cm. Cut it while taking out the trash, unsure which could on. She tells me that she is up to date on a tetanus shot. Physical examination significant for a small laceration about 1 cm to the right 1st web space, no bleeding. Full range of motion to all fingers and wrist. No evident foreign bodies. Plan at this time is to glue the area using Dermabond. Medical Records Attestation: I reviewed the patient's medical records. Lab Data Attestation: I reviewed the patient's lab results. Critical Care Time Critical Care Time Critical Care Time: No Discharge Plan Discharge Clinical Impression: Laceration Patient Disposition: Elopement Instructions: Laceration (ED) Additional Instructions: Take your medications as prescribed. If you were prescribed antibiotics today, it is important that you take your medication to their entirety, do not skip any doses, do not finish them early. Follow-up with your primary care provider this week. Return to the emergency department with new or worsening symptoms. In case of emergency call 911 Prescriptions: New doxycycline hyclate 100 mg capsule 100 mg PO BID 10 Days Qty: 20 RF: 0 No Action azithromycin [Zithromax Z-Miguel] 250 mg tablet See Rx Instructions .ROUTE .COMPLEX Qty: 6 RF: 0 cefuroxime axetil 500 mg tablet 500 mg PO Q12H 10 Days Qty: 20 RF: 0 phenazopyridine [Pyridium] 200 mg tablet 200 mg PO TID Qty: 10 RF: 0 acetaminophen 500 mg tablet 1,000 mg PO QID PRN (Reason: pain) Qty: 30 RF: 0 ibuprofen 600 mg tablet 600 mg PO Q6H PRN (Reason: pain) Qty: 20 RF: 0 nitrofurantoin monohyd/m-cryst [Macrobid] 100 mg capsule 100 mg PO Q12H 5 Days Qty: 10 RF: 0 ibuprofen 600 mg tablet 600 mg PO Q8H PRN (Reason: pain) Qty: 20 RF: 0 cyclobenzaprine 5 mg tablet 5 mg PO BEDTIME PRN (Reason: muscle spasm) Qty: 7 RF: 0 Referrals: Physician,Unknown J [Primary Care Provider] - 2 days Stand Alone Forms: Work/School Release
--- NOTE | 2021-10-16 21:38 | PC.NURSE ---
HEAD INSULATION BOARD SAW OPERATOR WAS CALLED MULTIPLE TIME TO BRING DERMABOND. PT DID NOT WANT TO WAIT ANY LONGER AND LEFT JENNIFER KERR AWARE.
== END 2021-10-16 21:45 | disposition left against medical advice (07) ==
PROVIDERS: Emergency Provider Internal Medicine
DX: S61.411A Laceration without foreign body of right hand, initial encounter (principal); M79.641 Pain in right hand; W26.9XXA Contact with unspecified sharp object(s), initial encounter; Y93.9 Activity, unspecified; Y92.009 Unspecified place in unspecified non-institutional (private) residence as the place of occurrence of the external cause; Y99.9 Unspecified external cause status
CPT/HCPCS: 12001; 99283; 99284

== ENCOUNTER 2024-04-13 14:56 | Emergency (ER) | payer OTHER, SELFPAY ==
--- NOTE | 2024-04-13 15:07 | ED.FEMALEGU ---
HPI - Female Genitourinary General Chief complaint: General Medical Stated complaint: STD testing Time Seen by Provider: 04/13/24 17:04 Source: patient, RN notes reviewed and old records reviewed Mode of arrival: ambulatory Limitations: no limitations History of Present Illness ED Provider: KATYA MCNEAL PA-C HPI Narrative: 34 year old female with no significant past medical history presents to the ED today requesting STD testing. Patient reports that her girlfriend recently cheated on her with a male partner. She is requesting STD testing for CT/NG. Denies symptoms, including fever/chills, N/V, pelvic pain, vaginal discharge, dysuria, hematuria, rashes. She admits to ingrown hairs along suprapubic groin area. denies vaginal lesions, burning. Denies chance of . Related Data Previous Rx's ?Medication ?Instructions ?Recorded azithromycin 250 mg tablet See Rx Instructions PO .COMPLEX #6 09/15/20 (Zithromax Z-Miguel) tabs cefuroxime axetil 500 mg tablet 500 mg PO Q12H 10 days #20 tabs 01/04/21 phenazopyridine 200 mg tablet 200 mg PO TID 6 doses #10 tabs 01/04/21 (Pyridium) acetaminophen 500 mg tablet 1,000 mg (2 x 500 mg) PO QID PRN 03/24/21 pain #30 tabs ibuprofen 600 mg tablet 600 mg PO Q6H PRN pain #20 tabs 03/24/21 nitrofurantoin 100 mg PO Q12H 5 days #10 caps 03/24/21 monohydrate/macrocrystals 100 mg capsule (Macrobid) cyclobenzaprine 5 mg tablet 5 mg PO BEDTIME PRN muscle spasm 07/19/21 #7 tabs ibuprofen 600 mg tablet 600 mg PO Q8H PRN pain #20 tabs 07/19/21 doxycycline hyclate 100 mg capsule 100 mg PO BID 10 days #20 caps 10/16/21 Allergies Allergy/AdvReac Type Severity Reaction Status Date / Time latex [LATEX] Allergy Intermediate HIVES Verified 04/13/24 15:10 Penicillins [PENICILLINS] Allergy Mild UNKNOWN Verified 04/13/24 15:10 Review of Systems Review of Systems: Constitutional: No fever, chills, fatigue, night sweats, weight changes ENT/Mouth: No ear pain, hearing loss, nasal congestion, sinus pain, rhinorrhea, sore throat Eyes: No eye pain, swelling, redness, vision changes, discharge Cardio: No chest pain, palpitations, CADE, orthopnea, peripheral edema Pulm: No SOB, cough, sputum, wheezing, dyspnea, hemoptysis GI: No nausea, vomiting, hematemesis, abdominal pain, diarrhea, constipation, hematochezia, melena : No irregular bleeding, dysuria, frequency, urgency, hesitancy, hematuria, flank pain, urinary flow changes, urinary incontinence or retention MSK: No back pain, neck pain, joint pain, myalgias Skin: No lesions, rashes Neuro: No weakness, numbness, paresthesias, LOC, dizziness, headache Psych: No anxiety/panic, depression, SI/HI, AH/VH All other systems reviewed and are negative. [facility] Past Medical History Attestation statement: The following information was validated with the patient. Source: old records reviewed and nursing notes reviewed Medical History Asthma Surgical History S/P tubal ligation Social History Social History Alcohol intake: never Advance Directives: No Advance Directives Information Provided: No Do you have a plan to hurt others: No Plan Physical Exam Vital Signs: Vital Signs: Last Vital Signs Temp 98.5 F 04/13/24 17:17 Pulse 107 H 04/13/24 17:17 Resp 18 04/13/24 17:17 BP 148/79 H 04/13/24 17:17 Pulse Ox 98 04/13/24 17:17 O2 Del Method Room Air 04/13/24 17:17 BMI result Body Mass Index 26.3 Patient hypertensive and tachycardic, vitals otherwise WNL. Const: General: cooperative, healthy appearing, comfortable and no acute distress Orientation/consciousness: patient oriented x3 Limitations: no limitations HEENT: Head: Yes normal to inspection, Yes No palpable skull fracture present, Yes normocephalic and Yes atraumatic Eyes: General: appearance normal, both eyes and all related structures Pupils: Equal, round and reactive pupils present Neck: Neck: Yes normal visual inspection, Yes full ROM and Yes no lymphadenopathy Resp: Effort & Inspection: normal respiratory effort and able to speak in complete sentences Cardio: Rate: regular rate Rhythm: regular rhythm GI: Inspection: Yes normal to inspection Palpation (GI): Soft to palpation and nontender Auscultation: normal bowel sounds : Other: Patient declining pelvic exam at this time. no inguinal LAD. General: Yes no CVA tenderness Back/Spine/Pelvis: Back: no CVA tenderness Skin: General skin exam: no rashes or lesions noted Neuro: General: patient oriented x3 Cranial nerves: Yes Equal, round and reactive pupils present Extrem: General: Yes normal to inspection Course Course Course Narrative: This is a Rapid Medical Exam performed in triage by Christen Mena PA-C. Full HPI, ROS and PE to be performed by primary ED provider. 34 year-old F w/no sig PMHx presenting to the ED c/o genital ingrown hair & feeling like she was cheated on and requesting STI testing. LMP 7/. Is sexually active w/one female partner. denies dysuria, hematuria, vaginal bleeding/d/c. PE: not performed in triage Plan: UA, STI testing Reevaluation(s) Reevaluation #1: [id number]-- Patient declining pelvic exam at this time however she did allow me to examine her suprapubic region which shows areas of razor burn without noted infection. There are no lesions noted. no inguinal LAD. > urine is negative for urinary tract infection. CT/NG testing pending. Patient declining prophylactic treatment at this time. Informed patient that she will be called with any positive results in treated at that time. She is agreeable with this. Patient has remained stable throughout ED visit today. Discussed worrisome signs and symptoms and when to return to the ED. All questions answered at this time. Patient is agreeable with disposition and stable for discharge. Medical Decision Making Medical Decision Making MDM Narrative: 34 year old female with no significant past medical history presents to the ED today requesting STD testing. Patient is nontoxic-appearing and in no acute distress. Tachycardic to 107. Hypertensive. Vitals otherwise WNL. Afebrile. On exam, abdomen is soft, nondistended, nontender to palpation without rebound tenderness or guarding. Normoactive bowel sounds x4. No CVAT bilaterally. Declining pelvic exam at this time. Differential diagnosis includes folliculitis, sexually transmitted infection, UA. unlikely herpes zoster/ simplex, syphillis. Plan for UA, CT/NG and disposition. Differential Diagnosis Differential Diagnoses: The differential diagnosis associated with the presentation includes As above Admission/Observation Not indicated Lab Data MDM Lab Attestation statement: I reviewed the patient's lab results. As above Labs: Lab Results 04/13/24 Range/Units 15:30 Urine Color Yellow Urine Appearance Clear Urine pH 6.0 (5.0-9.0) Ur Specific [place] <= 1.005 (1.005-1.025) Urine Protein Negative (Neg-Trace) mg/dL Urine Glucose (UA) Negative (Negative) mg/dL Urine Ketones Negative (Negative) mg/dL Urine Blood Negative (Negative) Urine Nitrite Negative (Negative) Ur Leukocyte Esterase Negative (Negative) Chlam trachomat DNA PCR NOT DETECTED (Not Detect.) N.gonorrhoeae DNA (PCR) NOT DETECTED (Not Detect.) External Record Review External record reviewed: Inpatient record Social Determinants Patient?s care significantly limited by Social Determinants of Health including: Other Social Determinant of Health Critical Care Time Critical Care Time Critical Care Time: No Discharge Plan Discharge Clinical Impression: Encounter for urine test Patient Disposition: Home, Self-Care Additional Instructions: Your urine is negative for infection. It has been sent to the lab to test for gonorrhea and chlamydia. You will be called in 1-2 days with any positive results that warrant treatment. Please practice safe sex. Refrain from having intercourse until you tested negative for sexually transmitted infections. Follow-up with your OBGYN. Return with new or worsening symptoms. In the case of an emergency call 911. Prescriptions: No Action azithromycin [Zithromax Z-Miguel] 250 mg tablet See Rx Instructions .ROUTE .COMPLEX Qty: 6 0RF Rx Instructions: take 500 mg today (day 1), then 250 mg for 4 days (days 2-5) cefuroxime axetil 500 mg tablet 500 mg PO Q12H 10 Days Qty: 20 0RF phenazopyridine [Pyridium] 200 mg tablet 200 mg PO TID Qty: 10 0RF acetaminophen 500 mg tablet 1,000 mg PO QID PRN (Reason: pain) Qty: 30 0RF ibuprofen 600 mg tablet 600 mg PO Q6H PRN (Reason: pain) Qty: 20 0RF nitrofurantoin monohyd/m-cryst [Macrobid] 100 mg capsule 100 mg PO Q12H 5 Days Qty: 10 0RF Rx Instructions: must administer with a meal/food doxycycline hyclate 100 mg capsule 100 mg PO BID 10 Days Qty: 20 0RF ibuprofen 600 mg tablet 600 mg PO Q8H PRN (Reason: pain) Qty: 20 0RF cyclobenzaprine 5 mg tablet 5 mg PO BEDTIME PRN (Reason: muscle spasm) Qty: 7 0RF Referrals: [facility] [Primary Care Provider] - Interventions: ED Discharge Assessment Last Done: 04/13/24 17:17 Discharge Date/Time: 04/13/24 17:17 Print Language: Icelandic
[2024-04-13 15:08] VITALS: BP 148/79; PULSE 107; RESP 18; TEMP 36.9; O2SAT 98; BMI 26.3
[2024-04-13 15:45] LABS: Appearance Urine Clear; Color Urine Yellow; Glucose Urine UA Negative (Negative); Leukocyte Esterase Urine Negative (Negative); Nitrite Urine Negative (Negative); Specific Gravity - Urine <= 1.005 (1.005-1.025); Urine Blood Negative (Negative); Urine Ketones Negative (Negative); Urine Protein Negative (Neg-Trace)
[2024-04-13 17:17] VITALS: BP 148/79; PULSE 107; RESP 18; TEMP 36.9; O2SAT 98
[2024-04-14 12:18] LABS: CT PCR NOT DETECTED (Not Detect.); NG PCR NOT DETECTED (Not Detect.)
== END 2024-04-13 17:17 | disposition home or self-care (01) ==
PROVIDERS: Physician Assistant; Emergency Provider Emergency Medicine; PCP Nurse Practitioner Family
DX: Z20.2 Contact with and (suspected) exposure to infections with a predominantly sexual mode of transmission (principal)
CPT/HCPCS: 81003; 87491; 87591; 99282

== ENCOUNTER 2025-02-27 23:31 | Emergency (ER) | payer OTHER, SELFPAY ==
[2025-02-27 23:37] VITALS: BP 128/73; PULSE 95; RESP 16; TEMP 36.8; O2SAT 99; BMI 25.6
[2025-02-28] MEDS: Ibuprofen 600 MG TABLET PO (01:10)
[2025-02-28 01:16] VITALS: BP 128/73; PULSE 95; RESP 16; TEMP 36.8; O2SAT 99
--- NOTE | 2025-03-01 01:49 | ED.FALL ---
HPI - Fall General Chief Complaint: Fall Stated Complaint: fall, head injury Time Seen by Provider: 02/28/25 00:33 Source: patient Mode of arrival: ambulatory Limitations: no limitations History of Present Illness ED Provider: HPI Narrative: Patient apparently slipped in the bathroom tub and hit her head to the ground without significant loss of consciousness no nausea no vomiting felt dizzy initially but now feeling much better not on any anticoagulation Related Data Previous Rx's ?Medication ?Instructions ?Recorded azithromycin 250 mg tablet See Rx Instructions PO .COMPLEX #6 09/15/20 (Zithromax Z-Miguel) tabs cefuroxime axetil 500 mg tablet 500 mg PO Q12H 10 days #20 tabs 01/04/21 phenazopyridine 200 mg tablet 200 mg PO TID 6 doses #10 tabs 01/04/21 (Pyridium) acetaminophen 500 mg tablet 1,000 mg (2 x 500 mg) PO QID PRN 03/24/21 pain #30 tabs ibuprofen 600 mg tablet 600 mg PO Q6H PRN pain #20 tabs 03/24/21 nitrofurantoin 100 mg PO Q12H 5 days #10 caps 03/24/21 monohydrate/macrocrystals 100 mg capsule (Macrobid) cyclobenzaprine 5 mg tablet 5 mg PO BEDTIME PRN muscle spasm 07/19/21 #7 tabs ibuprofen 600 mg tablet 600 mg PO Q8H PRN pain #20 tabs 07/19/21 doxycycline hyclate 100 mg capsule 100 mg PO BID 10 days #20 caps 10/16/21 Allergies Allergy/AdvReac Type Severity Reaction Status Date / Time latex [LATEX] Allergy Intermediate HIVES Verified 02/27/25 23:44 Penicillins [PENICILLINS] Allergy Mild UNKNOWN Verified 02/27/25 23:44 Review of Systems Review of Systems: Yes all other systems are reviewed and are negative PMFSH Past Medical History Medical History Asthma Surgical History S/P tubal ligation Social History Social History Alcohol intake: never Advance Directives: No Advance Directives Information Provided: No Do you have a plan to hurt others: No Plan Physical Exam Vital Signs: Vital Signs: Last Vital Signs Temp 98.2 F 02/28/25 01:16 Pulse 95 02/28/25 01:16 Resp 16 02/28/25 01:16 BP 128/73 02/28/25 01:16 Pulse Ox 99 02/28/25 01:16 O2 Del Method Room Air 02/28/25 01:16 BMI result Body Mass Index 25.6 Appearance: Alert. Oriented X3. No acute distress. Eyes: PERRLA, No Nystagmus ENT: Pharynx normal. Oral Mucosa moist soft tissue swelling occipital area Neck: Normal inspection. Neck supple. CVS: Normal heart rate and rhythm. Pulses normal. Respiratory: No respiratory distress. Equal air entry bilateral, no wheezing/rales/rhonchi Abdomen: Soft and nontender. Bowel sounds are present, no mass palpable, no CVA tenderness Skin: Skin warm and dry. Normal skin color. Normal skin turgor. Extremities: No lower extremity edema. No calf tenderness Neuro: Oriented X 3. No motor deficit. No sensory deficit.No cerebellar signs , cranial nerves II-XII intact Medications Administered Discontinued Medications Generic Name Dose Route Start Last Admin Trade Name Freq PRN Reason Stop Dose Admin Ibuprofen 600 mg 02/28/25 00:48 02/28/25 01:10 Ibuprofen 600 Mg Tablet PO 02/28/25 00:49 600 mg ONCE ONE Administration Medical Decision Making Medical Decision Making [facility] Narrative: Patient is here for minor head injury no signs of significant internal injuries patient ambulatory in his steady gait will discharge patient home advised to follow the head injury instructions Discharge Plan Discharge Clinical Impression: Minor closed head injury Patient Disposition: Home, Self-Care Instructions: Head Injury (ED) Additional Instructions: Take Tylenol/Motrin for pain Report to the ER if any vomiting/altered sensorium/seizure/worsening of the headache Prescriptions: No Action azithromycin [Zithromax Z-Miguel] 250 mg tablet See Rx Instructions .ROUTE .COMPLEX Qty: 6 0RF Rx Instructions: take 500 mg today (day 1), then 250 mg for 4 days (days 2-5) cefuroxime axetil 500 mg tablet 500 mg PO Q12H 10 Days Qty: 20 0RF phenazopyridine [Pyridium] 200 mg tablet 200 mg PO TID Qty: 10 0RF acetaminophen 500 mg tablet 1,000 mg PO QID PRN (Reason: pain) Qty: 30 0RF ibuprofen 600 mg tablet 600 mg PO Q6H PRN (Reason: pain) Qty: 20 0RF nitrofurantoin monohyd/m-cryst [Macrobid] 100 mg capsule 100 mg PO Q12H 5 Days Qty: 10 0RF Rx Instructions: must administer with a meal/food doxycycline hyclate 100 mg capsule 100 mg PO BID 10 Days Qty: 20 0RF ibuprofen 600 mg tablet 600 mg PO Q8H PRN (Reason: pain) Qty: 20 0RF cyclobenzaprine 5 mg tablet 5 mg PO BEDTIME PRN (Reason: muscle spasm) Qty: 7 0RF Interventions: ED Discharge Assessment Last Done: 02/28/25 01:16 Discharge Date/Time: 02/28/25 01:15 Print Language: Barbadian
== END 2025-02-28 01:15 | disposition home or self-care (01) ==
PROVIDERS: Emergency Provider Internal Medicine; PCP Nurse Practitioner Family
DX: S09.8XXA Other specified injuries of head, initial encounter (principal); W16.212A Fall in (into) filled bathtub causing other injury, initial encounter; R42 Dizziness and giddiness; Y93.E1 Activity, personal bathing and showering; Y92.002 Bathroom of unspecified non-institutional (private) residence as the place of occurrence of the external cause; Y99.9 Unspecified external cause status
CPT/HCPCS: 99283

== ENCOUNTER 2025-08-05 14:02 | Emergency (ER) | payer OTHER, SELFPAY ==
--- NOTE | ~2025-08-05 | CT_ITS ---
CLINICAL HISTORY: RLQ pain CT abdomen and pelvis with contrast Comparison: None provided Findings: Lung bases: Clear. Liver: No focal lesions. No biliary ductal dilatation. Patent portal vein. Gallbladder: Noninflamed gallbladder. Spleen: Normal Pancreas: No solid mass or main duct dilation. Adrenal glands: No nodules. Kidneys: No hydronephrosis. No stones. No solid mass. Pelvic organs: 3.1 cm cyst of the right ovary.. Peritoneum and Gastrointestinal: Tiny hiatal hernia. No bowel obstruction, pneumoperitoneum, or ascites. Noninflamed appendix. Lymph nodes: No lymphadenopathy. Vessels: No abdominal aortic. Swirling configuration of the SMV branches at the mesenteric root. In the absence of obstruction or mesenteric congestion, this is favored to represent a normal variant. Bones and soft tissues: Unremarkable. IMPRESSION: No acute CT findings of the abdomen or pelvis. 3.1 cm cyst of the right ovary favored to be physiological. If it is a possible culprit of pain, consider a pelvic ultrasound. Swirling configuration of the SMV branches at the mesenteric root. In the absence of obstruction or mesenteric congestion, this is favored to represent a normal variant. This document has been electronically signed by: Lisa Santana MD on 08/05/2025 19:19:27
[2025-08-05 14:29] VITALS: PULSE 88; RESP 24; O2SAT 100; BMI 25.6
--- NOTE | 2025-08-05 14:31 | ED.GENADULT ---
HPI - General Adult General Chief complaint: Nausea/Vomiting/Diarrhea Stated complaint: Nausea Vomiting Diarrhea Time Seen by Provider: 08/05/25 17:25 Source: patient, RN notes reviewed and old records reviewed Mode of arrival: ambulatory Limitations: no limitations History of Present Illness ED Provider: Liz HPI narrative: 35-year-old female who denies any past medical history presents for evaluation of abdominal pain, nausea and vomiting. She reports that she tends to have nausea and vomiting after drinking alcohol the night before She had 1 glass of wine last night However she reports right lower abdominal pain in addition to heartburn. She reports she had a tubal ligation but no other abdominal surgeries Denies any fevers, chills pain Denies any back pain. No other complaints or concerns at this Related Data Previous Rx's ?Medication ?Instructions ?Recorded azithromycin 250 mg tablet See Rx Instructions PO .COMPLEX #6 09/15/20 (Zithromax Z-Miguel) tabs cefuroxime axetil 500 mg tablet 500 mg PO Q12H 10 days #20 tabs 01/04/21 phenazopyridine 200 mg tablet 200 mg PO TID 6 doses #10 tabs 01/04/21 (Pyridium) acetaminophen 500 mg tablet 1,000 mg (2 x 500 mg) PO QID PRN 03/24/21 pain #30 tabs ibuprofen 600 mg tablet 600 mg PO Q6H PRN pain #20 tabs 03/24/21 nitrofurantoin 100 mg PO Q12H 5 days #10 caps 03/24/21 monohydrate/macrocrystals 100 mg capsule (Macrobid) cyclobenzaprine 5 mg tablet 5 mg PO BEDTIME PRN muscle spasm 07/19/21 #7 tabs ibuprofen 600 mg tablet 600 mg PO Q8H PRN pain #20 tabs 07/19/21 doxycycline hyclate 100 mg capsule 100 mg PO BID 10 days #20 caps 10/16/21 Allergies Allergy/AdvReac Type Severity Reaction Status Date / Time latex (LATEX) Allergy Intermediate HIVES Verified 08/05/25 14:31 Penicillins (PENICILLINS) Allergy Mild UNKNOWN Verified 08/05/25 14:31 Review of Systems Constitutional: Constitutional: Denies body ache(s), Denies chills, Denies fever(s) and Denies headache(s) Eyes: Eyes: Denies blurry vision ENT: Denies vertigo, Denies dizziness and Denies headache(s) Cardiovascular: Cardiovascular: Denies chest pain and Denies dyspnea on exertion Respiratory: Respiratory: Denies cough and Denies dyspnea on exertion Gastrointestinal: Gastrointestinal: Reports abdominal pain, Reports nausea and Reports vomiting Genitourinary: Genitourinary: Denies hematuria Musculoskeletal: Musculoskeletal: Denies back pain Neurologic: Denies vertigo, Denies dizziness and Denies headache(s) Psychiatric: Psychiatric: Denies anxiety PMFSH Past Medical History Medical History Asthma Surgical History S/P tubal ligation Social History Social History Alcohol intake: current Alcohol intake frequency: former alcohol drinker Smoked in Last 30 Days: Yes Substance Use Type: Crack/Cocaine Advance Directives: No Advance Directives Information Provided: Yes Physical Exam ED Vital Signs: Vital Signs - 24 hr 08/05/25 14:29 08/05/25 16:51 Temperature 98 F Pulse Rate 88 76 Respiratory Rate 24 H 18 Blood Pressure 122/52 L Pulse Oximetry 100 100 Oxygen Delivery Method Room Air BMI result Body Mass Index 25.6 Const General: healthy appearing, comfortable, no acute distress, alert and awake Nutritional Appearance: well nourished Orientation/consciousness: patient oriented x3 HENMT Head: Yes normocephalic and Yes atraumatic Throat: Yes posterior oropharynx normal Eyes Eyelids: Yes eyelids normal Conjunctivae: conjunctivae normal Sclerae: sclerae normal Corneas: corneas normal Pupils: Equal, round and reactive pupils present EOM: EOMs intact bilaterally Neck Neck: Yes full ROM Resp Effort & Inspection: normal respiratory effort, able to speak in complete sentences and not labored Cardio Rate: regular rate Rhythm: regular rhythm GI Inspection: No distended Palpation (GI): Soft to palpation, not firm, Tenderness to palpation present (GI) in the epigastrum and in the RLQ; not in the LLQ, not in the LUQ and not in the RUQ, no guarding and not rigid Skin General skin exam: no rashes or lesions noted and elasticity normal Neuro General: patient oriented x3 Cranial nerves: Yes Equal, round and reactive pupils present and Yes Bilaterally intact EOM present Cognition (Neuro): normal cognition Extrem Other: Moving all extremities well without any obvious deformities Course Course Course Narrative: This is a rapid medical exam performed by Katia Mason NP: Additional HPI, ROS, PE not included below will be deferred to primary provider. Patient is a 35y/o F with pmhx asthma presenting with nausea and vomiting since drinking less than one glass of wine last night. Hyperventilating in triage, instructed to slow breathing. Admits to regular marijuana use. Plan: viral serology, labs Medications Administered Discontinued Medications Generic Name Dose Route Start Last Admin Trade Name Freq PRN Reason Stop Dose Admin Lactated Ringer's 1,000 mls @ 999 mls/hr 08/05/25 17:45 08/05/25 18:09 Lr IV 08/05/25 18:45 999 mls/hr .Q1H1M RUSS Administration Iohexol 100 ml 08/05/25 18:29 08/05/25 18:30 Iohexol 350 Mg/Ml 100 Ml Infus..Btl IV 08/05/25 18:30 85 ml ONCE ONE Administration Ondansetron HCl 4 mg 08/05/25 14:32 08/05/25 14:35 Ondansetron Odt 4 Mg Tab.Rapdis TRANSLINGU 08/05/25 14:33 4 mg ONCE ONE Administration Pantoprazole Sodium 40 mg 08/05/25 17:43 08/05/25 18:08 Pantoprazole Sodium 40 Mg/10 Ml Vial IVPUSH 08/05/25 17:44 40 mg ONCE ONE Administration Medical Decision Making Medical Decision Making [facility] Narrative: 35-year-old female who denies any past medical history presents for evaluation of lower abdominal pain. Her symptoms started this morning after drinking alcohol last night but she reports only drinking 1 glass of wine. She reports this is a Teresa have some right lower quadrant tenderness on exam, [place] [id number]. This may be related to deep demargination and from her vomiting however can not rule out acute appendicitis. Therefore we will get a CT scan of the abdomen pelvis to evaluate. She had a T bili of 1.4 but no right upper quadrant tenderness and a negative Vazquez's sign. Therefore we will await CT scan of the and I will defer gallbladder ultrasound that this time. The patient is not Differential Diagnosis Differential Diagnoses: The differential diagnosis associated with the presentation includes Gastroenteritis Gastritis Peptic ulcer disease Acute appendicitis Biliary colic Lab Data MDM Lab Attestation statement: I reviewed the patient's lab results. As above 08/05/25 14:41 08/05/25 14:41 Labs: Lab Results 08/05/25 Range/Units 14:41 WBC 14.1 H (4.8-10.8) X10*3/uL RBC 4.85 (4.20-5.50) X10*6/uL Hgb 13.4 (12.0-16.0) g/dl Hct 40.0 (37.0-47.0) % MCV 82.5 (80.0-98.0) fL MCH 27.6 (27.0-33.0) pg MCHC 33.5 (31.0-35.0) g/dl RDW 15.4 (11.0-16.0) % Plt Count 444 H (160-400) X10*3/uL MPV 9.3 L (9.4-12.3) fL Immature Gran % (Auto) 0.3 (0.0-0.4) % Neut % (Auto) 62.1 (45-73) % Lymph % (Auto) 25.1 (20-40) % Rowan % (Auto) 5.8 (2-11) % Eos % (Auto) 5.4 H (0-4) % Baso % (Auto) 1.3 (0-2) % Lymph # (Auto) 3.6 (1.2-4.9) X10*3/uL [place]an # (Auto) 0.8 (0.1-1.2) X10*3/uL Eos # (Auto) 0.8 H (0.0-0.4) X10*3/uL Baso # (Auto) 0.2 (0.0-0.2) X10*3/uL Abs Immat Gran (auto) 0.04 H (0.00-0.03) X10*3/uL Absolute Neuts (auto) 8.8 H (2.0-8.3) x10*3/uL Absolute Nucleated RBC 0.000 (0.0-0.012) X10*3/uL Nucleated RBC % (auto) 0.0 (0.0-0.2) /100WBC Sodium 136 (135-145) mmol/L Potassium 4.0 (3.3-5.1) mmol/L Chloride 105 (96-108) mmol/L Carbon Dioxide 21 L (22-29) mmol/L Anion Gap 14 (12-20) BUN 11 (9-16) mg/dL Creatinine 0.72 (0.5-1.4) mg/dL Estim Creat Clear Calc 96.4 Estimated GFR > 60 Random Glucose 104 (60-115) mg/dL Calcium 9.7 (8.4-10.2) mg/dL Total Bilirubin 1.3 H (0.0-1.0) mg/dL AST 25 (5-31) U/L ALT 18 (0-31) U/L Alkaline Phosphatase 71 (39-117) U/L Total Protein 7.6 (6.5-8.0) g/dL Albumin 4.5 (3.5-5.0) g/dL Lipase 10 (8-78) U/L Beta HCG, Quant < 2 mIU/mL Influenza Type A (PCR) NEGATIVE (Negative) Influenza Type B (PCR) NEGATIVE (Negative) RSV RNA Qual (PCR) NEGATIVE (Negative) SARS-CoV-2 RNA (RT-PCR) NEGATIVE (Negative) Radiology Impression Discussion of test interpretation with radiology: I have reviewed the radiologist's reading. Radiologist Impression: IMPRESSION: No acute CT findings of the abdomen or pelvis. 3.1 cm cyst of the right ovary favored to be physiological. If it is a possible culprit of pain, consider a pelvic ultrasound. Swirling configuration of the SMV branches at the mesenteric root. In the absence of obstruction or mesenteric congestion, this is favored to represent a normal variant. This document has been electronically signed by: Lisa Santana MD on 08/05/2025 19:19:27 Discharge Plan Discharge Clinical Impression: Abdominal pain with nonbilious vomiting, Ovarian cyst Patient Disposition: Home, Self-Care Instructions: Acute Nausea and Vomiting (ED), Ovarian Cyst (ED) Additional Instructions: Your workup in the ER today was reassuring. I recommend he follow up with GI for an endoscopy. Call the number provided to schedule an appointment. Your CT scan showed an ovarian cyst on the right. If you continued to have pain this area you may follow up with your primary doctor or OBGYN Return for new or worsening symptoms Prescriptions: No Action azithromycin [Zithromax Z-Miguel] 250 mg tablet See Rx Instructions .ROUTE .COMPLEX Qty: 6 0RF Rx Instructions: take 500 mg today (day 1), then 250 mg for 4 days (days 2-5) cefuroxime axetil 500 mg tablet 500 mg PO Q12H 10 Days Qty: 20 0RF phenazopyridine [Pyridium] 200 mg tablet 200 mg PO TID Qty: 10 0RF acetaminophen 500 mg tablet 1,000 mg PO QID PRN (Reason: pain) Qty: 30 0RF ibuprofen 600 mg tablet 600 mg PO Q6H PRN (Reason: pain) Qty: 20 0RF nitrofurantoin monohyd/m-cryst [Macrobid] 100 mg capsule 100 mg PO Q12H 5 Days Qty: 10 0RF Rx Instructions: must administer with a meal/food doxycycline hyclate 100 mg capsule 100 mg PO BID 10 Days Qty: 20 0RF ibuprofen 600 mg tablet 600 mg PO Q8H PRN (Reason: pain) Qty: 20 0RF cyclobenzaprine 5 mg tablet 5 mg PO BEDTIME PRN (Reason: muscle spasm) Qty: 7 0RF Referrals: [facility] [Provider Group, Gastroenterology] Referral Note: gastritis Print Language: Cuban
--- NOTE | 2025-08-05 14:32 | PC.NURSE ---
UNABLE TO GET BP/TEMP AT TRIAGE DUE TO PT'S MOVING, WRETCHING
[2025-08-05 14:56] LABS: MANUAL DIFF FLAG NO
[2025-08-05 14:57] LABS: Hematocrit 40.0 % (37.0-47.0); Hemoglobin 13.4 g/dl (12.0-16.0); Imm Gran Abs Auto 0.04 X10*3/uL (0.00-0.03); Imm Gran Pct Auto 0.3 % (0.0-0.4); Lymphocytes Absolute Auto 3.6 X10*3/uL (1.2-4.9); Mean Corpuscular HGB Conc 33.5 g/dl (31.0-35.0); Mean Corpuscular Hemoglobin 27.6 pg (27.0-33.0); Mean Corpuscular Volume 82.5 fL (80.0-98.0); NRBC Abs Auto 0.000 X10*3/uL (0.0-0.012); NRBC Pct Auto 0.0 /100WBC (0.0-0.2); Platelet Count 444 X10*3/uL (160-400); Red Blood Count 4.85 X10*6/uL (4.20-5.50); White Blood Count 14.1 X10*3/uL (4.8-10.8)
[2025-08-05 15:18] LABS: Alanine Aminotransferase 18 U/L (0-31); Albumin Level 4.5 g/dL (3.5-5.0); Alkaline Phosphatase 71 U/L (39-117); Anion Gap 14 (12-20); Aspartate Amino Transferase 25 U/L (5-31); Blood Urea Nitrogen 11 mg/dL (9-16); Calcium 9.7 mg/dL (8.4-10.2); Carbon Dioxide 21 mmol/L (22-29); Chloride 105 mmol/L (96-108); Creatinine Clr Calc Pharmacy 96.4; Estimated Glomerular Filt Rate > 60; Potassium 4.0 mmol/L (3.3-5.1); Sodium 136 mmol/L (135-145); Total Protein 7.6 g/dL (6.5-8.0)
[2025-08-05 15:34] LABS: Resp Syncy Virus RNA Qual PCR NEGATIVE (Negative); SARS COV2 PCR INHOUSE NEGATIVE (Negative)
[2025-08-05 16:51] VITALS: BP 122/52; PULSE 76; RESP 18; TEMP 36.6; O2SAT 100
[2025-08-05 17:43] LABS: Lipase 10 U/L (8-78)
[2025-08-05] MEDS: Lactated Ringers 1,000 ML 999 ML IV (18:09)
[2025-08-05] MEDS: iohexoL 350 MG/ML 100 ML INFUS..BTL IV (18:30)
[2025-08-05 20:03] VITALS: BP 122/52; PULSE 76; RESP 18; TEMP 36.6; O2SAT 100
== END 2025-08-05 20:04 | disposition home or self-care (01) ==
PROVIDERS: Physician Assistant; Registered Nurse Emergency; Emergency Provider Student in an Organized Health Care Education/Training Program; PCP Nurse Practitioner Family
DX: R10.31 Right lower quadrant pain (principal); N83.201 Unspecified ovarian cyst, right side; R11.2 Nausea with vomiting, unspecified; Z03.818 Encounter for observation for suspected exposure to other biological agents ruled out
CPT/HCPCS: 74177; 80053; 83690; 84702; 85025; 87637; 96361; 96374; 99284; J2470; J7120; Q9967

== ENCOUNTER → 2025-08-05 17:43 | Outpatient (BNV) | payer OTHER, SELFPAY | PROVIDERS: Emergency Provider Student in an Organized Health Care Education/Training Program; PCP Nurse Practitioner Family; Visit Provider Student in an Organized Health Care Education/Training Program | DX: N83.201 Unspecified ovarian cyst, right side (principal) | CPT/HCPCS: 74177 ==